=== PATIENT | female | born 1960 | race Caucasian/White ===

== ENCOUNTER → 2017-09-05 10:31 | Outpatient (CLI) | payer OTHER, MEDICAID, SELFPAY ==
--- NOTE | 2017-09-05 | DI.US.S_ITS ---
PROCEDURE: US ABDOMEN COMPLETE INDICATIONS: 57 year-old female with 3 cm masslike lesion in the posterior right hepatic lobe on recent CT scan, as well as diffuse fatty liver. TECHNIQUE: Real-time scanning was performed of the abdominal and retroperitoneal organs, with image documentation. COMPARISON: [facility], CT, ABDOMEN/PELVIS WITHOUT CONTRAS, 06/28/2017, 15:19. FINDINGS: Liver: Liver is normal in size and diffusely heterogeneous in echotexture. In the posterior right hepatic lobe, CT finding corresponds with 3.5 x 3.3 x 1.9 cm hypoechoic lesion. Color Doppler demonstrates no internal detectable vascular flow. Gallbladder: No gallstones or biliary sludge. Gallbladder wall thickness is normal. No pericholecystic fluid. Biliary ducts: Intrahepatic bile ducts are non-dilated. Extrahepatic bile duct caliber measures 4.4 mm. Normal is 6-7 mm or less in diameter, or 10 mm or less post-cholecystectomy. Pancreas: Visualized portions of the pancreas are sonographically normal. Pancreatic tail is obscured by bowel gas. Spleen: Spleen is normal in size and homogeneous in echotexture. Kidneys: Kidneys are normal in size and echotexture. Right kidney measures 11.0 cm long; left kidney measures 11.1 cm long. No hydronephrosis or nephrolithiasis. No solid masses. Aorta: Visualized aorta is normal in caliber at less than 3 cm. Iliacs: Proximal common iliac arteries are normal in caliber at less than 2.5 cm. IVC: Intrahepatic inferior vena cava is patent. Miscellaneous: No free abdominal fluid. IMPRESSION: 1. 3.5 cm posterior right hepatic lobe lesion corresponds with CT findings, and remains indeterminate in appearance. Finding may represent a true mass lesion, or perhaps atypical focal fatty sparing. Recommend further characterization attempt with pre-and postcontrast liver protocol abdominal MRI, utilizing Eovist contrast. 2. Background findings of diffuse fatty liver again noted. Dictated by: Misha Zendejas M.D. on 09/05/2017 at 12:14 Approved by: Misha Zendejas M.D. on 09/05/2017 at 12:19
[2017-09-05 12:05] LABS: Add Manual Diff / Slide Review NO; Basophils Percent Auto 0.6 % (0-2); Eosinophils Percent Auto 0.7 % (2-4); Hemoglobin 12.5 g/dL (12.0-16.0); Lymphocytes Percent Auto 32.5 % (25-40); Mean Corpuscular HGB Conc 33.9 % (30-36); Mean Corpuscular Hemoglobin 28.7 PG (26-34); Mean Corpuscular Volume 84.8 fL (80-100); Monocytes Percent Auto 3.9 % (3-14); Neutrophils Absolute Auto 5000 /uL (3000-5900); Neutrophils Percent Auto 62.3 % (50-75); Platelet Count 197 X10^3/uL (150-400); Red Blood Cell Count 4.36 X10^6/uL (4.0-5.2); Red Cell Distribution Width 14.3 % (11.6-14.8); White Blood Cell Count 8.1 X10^3/uL (4.5-11.0)
[2017-09-05 12:22] LABS: Alanine Aminotransferase 48 IU/L (9-52); Albumin 3.8 g/dL (3.5-5.0); Albumin Globulin Ratio 1.2 (1.0-2.8); Alkaline Phosphatase 61 U/L (38-126); Aspartate Aminotransferase 42 IU/L (14-36); BUN Creatinine Ratio 14.3 (6-22); Bilirubin Total 0.4 mg/dL (0.2-1.3); Blood Urea Nitrogen 10 mg/dL (7-17); Carbon Dioxide 29 mmol/L (22-32); Chloride 99 mmol/L (98-107); Estimated Glomerular Filt Rate > 60.0 mL/min (>60); Globulin 3.3 g/dL (1.7-4.1); Glucose 146 mg/dL (70-100); HEMOLYSIS < 15 (0-50); Sodium 139 mmol/L (137-145); Total Protein 7.1 g/dL (6.3-8.2)
[2017-09-07 16:09] LABS: Cancer Antigen 27.29 13 U/mL (< 38)
== END ==
PROVIDERS: Family Provider Physician Assistant; PCP Physician Assistant; Visit Provider Nurse Practitioner Gerontology
DX: C50.919 Malignant neoplasm of unspecified site of unspecified female breast (principal); R16.0 Hepatomegaly, not elsewhere classified; K76.0 Fatty (change of) liver, not elsewhere classified
CPT/HCPCS: 36415; 76700; 80053; 85025; 86300

== ENCOUNTER 2017-09-20 09:28 | Day surgery (SDC) | payer OTHER, MEDICAID, SELFPAY ==
--- NOTE | 2017-09-09 17:09 | ONC.PHONE ---
Onc patient phone note - Conversation with Person: Patient Discussion: Telephone conv w tristan re: poss reduced efficacy of tamoxifen with prozac. She informs me prior to prozac she tried other agents including wellbutrin and zolft without success. prozac has been effective for her. We discussed the recommendation is not necessarily to DC prozac with tamoxifen however with younger pts and higher risk cancers we need to be sure to have open dialogue. My recommendation to Tristan was to discuss with either her PCP or one of us in oncology clinic next visit. I refilled her tamoxifen and recommend in the meantime she cont prozac until she has f/u appt which she has soon. Tristan verbalized understanding.
[2017-09-20] VITALS (10 sets, daily range): BP systolic 86–118; BP diastolic 50–68; PULSE 54–80; RESP 10–18; TEMP 36–37.2; O2SAT 93–98; BMI 28.1
[2017-09-20] MEDS: SODIUM CHLORIDE 0.9% 1,000 ML 200 ML IV ×2 (10:10→12:00)
--- NOTE | 2017-09-20 10:36 | PM.HP.1 ---
History of Present Illness Date Patient Seen: 09/20/17 Time Patient Seen: 10:36 Chief complaint: EGD colonoscopy [id number] Patient History Medical History History of right breast cancer (Chronic) Surgical History Status post right breast lumpectomy (Resolved) History of tonsillectomy Status post knee surgery Status post laparoscopy Family & Social History Family History: Reviewed 09/20/17 by Etienne Dyson MD Social History: household members family Tobacco & Substance use: Quit smoking 2 years ago Meds Home Medications Medication Instructions Recorded Confirmed Type [MEDICAL MARIJUANA] #0 12/12/15 History alprazolam [Xanax] 0.5 mg PO BID PRN #60 tab 02/09/17 Rx metformin [Glucophage XR] 500 mg PO QDAY #30 tab 06/28/17 Rx ondansetron [Zofran ODT] 4 mg SUBLINGUAL Q6HP PRN #30 odt 06/28/17 Rx Glucose: Home Monitoring Kit kit #1 07/21/17 Rx Glucose: Test Strips str TID #100 07/21/17 Rx Lancet: Device box TID #1 07/21/17 Rx fluoxetine 20 mg capsule 20 mg PO TID #90 cap 08/03/17 Rx tamoxifen 20 mg PO DAILY #90 tab 09/09/17 Rx hydrocodone-acetaminophen [[place]] 1 tab PO Q4-6H PRN 09/19/17 09/20/17 History Allergies Allergy/AdvReac Type Severity Reaction Status Date / Time aloe vera [ALOE VERA] Allergy Severe HIVES Unverified 07/13/17 12:19 latex [LATEX] Allergy Severe HIVES AND Unverified 07/13/17 12:19 BURNING SENSATION irma [IRMA] Allergy Intermediate HIVES Unverified 07/13/17 12:19 Iodinated Contrast- Oral and Allergy Mild HUGE Unverified 07/13/17 12:19 IV Dye SWELLING [IODINATED CONTRAST MEDIA - AT SITE OF IV DYE] INJECTION, IV INFILTRATED sumatriptan [From IMITREX] AdvReac Severe VOMITING, Unverified 07/13/17 12:19 RAPID HEART RATE, JITTERING, NAUSEA, PANIC ATTACK prednisone [PREDNISONE] AdvReac Intermediate UIT Unverified 07/13/17 12:19 SYMPTOMS, FEVER, NAUSEA, HIVES, ELEVATED BLOOD SUGARS promethazine [From PHENERGAN] AdvReac Intermediate NAUSEA, Unverified 07/13/17 12:19 VOMITING AND JITTERY codeine [CODEINE] AdvReac Mild VOMITING Unverified 07/13/17 12:19 erythromycin base AdvReac Mild VOMITING Unverified 07/13/17 12:19 [ERYTHROMYCIN BASE] AND TURNED MY TEETH BLACK tetracycline [TETRACYCLINE] AdvReac Mild PROJECTILE Unverified 07/13/17 12:19 VOMITING CALANDULA Allergy Intermediate HIVES Uncoded 07/13/17 12:19 EPIDURAL STEROID AdvReac Intermediate WELTS, Uncoded 07/13/17 12:19 HIVES, FEVER AND NAUSEA Review of Systems Review of Systems All systems reviewed & are unremarkable except as noted in HPI and below Gastrointestinal Comments: Having intermittent bleeding per rectum. Postprandial fullness. Abnormal CT scan of the liver. Musculoskeletal Comments: Muscle cramps involving the legs and feet. Exam Vital Signs (past 8 hours): Vital Signs - 8 hr 09/20/17 09:53 Temperature 97.5 F L Pulse Rate 74 Respiratory Rate 16 Blood Pressure 118/63 Pulse Oximetry 95 Pulse Oximetry 95 Oxygen Delivery Method Room Air Narrative Exam Narrative: Operative no apparent distress. Lungs clear to auscultation no rales or rhonchi heart regular rate and rhythm no murmur or gallop abdomen is mildly protuberant soft nontender without mass. Alert and oriented x3. Assessment & Plan Plan: Assessment/Plan Narrative: Patient with epigastric pain discomfort and postprandial nausea and fullness and with right lower quadrant pain. She is 57 and has never had a colonoscopy. She has rectal bleeding. I have discussed the procedures and the rationale for both EGD and colonoscopy with the patient including risks of bleeding, perforation which would necessitate a major operation, failure to find remove all lesions and the potential to tattoo. They appeared to understand and wished to proceed.
--- NOTE | 2017-09-20 10:38 | SUR.OPER ---
to endo from opd via cart respirations unlabored iv patent positioned per self for procedure
--- NOTE | 2017-09-20 10:40 | P.HP_ITS ---
History of Present Illness Date Patient Seen: 09/20/17 Time Patient Seen: 10:36 Chief complaint: EGD colonoscopy [id number] Patient History Medical History History of right breast cancer (Chronic) Surgical History Status post right breast lumpectomy (Resolved) History of tonsillectomy Status post knee surgery Status post laparoscopy Family & Social History Family History: Reviewed 09/20/17 by Etienne Dyson MD Social History: household members family Tobacco & Substance use: Quit smoking 2 years ago Meds Home Medications Medication Instructions Recorded Confirmed Type [MEDICAL MARIJUANA] #0 12/12/15 History alprazolam [Xanax] 0.5 mg PO BID PRN #60 tab 02/09/17 Rx metformin [Glucophage XR] 500 mg PO QDAY #30 tab 06/28/17 Rx ondansetron [Zofran ODT] 4 mg SUBLINGUAL Q6HP PRN #30 odt 06/28/17 Rx Glucose: Home Monitoring Kit kit #1 07/21/17 Rx Glucose: Test Strips str TID #100 07/21/17 Rx Lancet: Device box TID #1 07/21/17 Rx fluoxetine 20 mg capsule 20 mg PO TID #90 cap 08/03/17 Rx tamoxifen 20 mg PO DAILY #90 tab 09/09/17 Rx hydrocodone-acetaminophen [Simon] 1 tab PO Q4-6H PRN 09/19/17 09/20/17 History Allergies Allergy/AdvReac Type Severity Reaction Status Date / Time aloe vera [ALOE VERA] Allergy Severe HIVES Unverified 07/13/17 12:19 latex [LATEX] Allergy Severe HIVES AND Unverified 07/13/17 12:19 BURNING SENSATION irma [IRMA] Allergy Intermediate HIVES Unverified 07/13/17 12:19 Iodinated Contrast- Oral and Allergy Mild HUGE Unverified 07/13/17 12:19 IV Dye SWELLING [IODINATED CONTRAST MEDIA - AT SITE OF IV DYE] INJECTION, IV INFILTRATED sumatriptan [From IMITREX] AdvReac Severe VOMITING, Unverified 07/13/17 12:19 RAPID HEART RATE, JITTERING, NAUSEA, PANIC ATTACK prednisone [PREDNISONE] AdvReac Intermediate UIT Unverified 07/13/17 12:19 SYMPTOMS, FEVER, NAUSEA, HIVES, ELEVATED BLOOD SUGARS promethazine [From PHENERGAN] AdvReac Intermediate NAUSEA, Unverified 07/13/17 12:19 VOMITING AND JITTERY codeine [CODEINE] AdvReac Mild VOMITING Unverified 07/13/17 12:19 erythromycin base AdvReac Mild VOMITING Unverified 07/13/17 12:19 [ERYTHROMYCIN BASE] AND TURNED MY TEETH BLACK tetracycline [TETRACYCLINE] AdvReac Mild PROJECTILE Unverified 07/13/17 12:19 VOMITING CALANDULA Allergy Intermediate HIVES Uncoded 07/13/17 12:19 EPIDURAL STEROID AdvReac Intermediate WELTS, Uncoded 07/13/17 12:19 HIVES, FEVER AND NAUSEA Review of Systems Review of Systems All systems reviewed & are unremarkable except as noted in HPI and below Gastrointestinal Comments: Having intermittent bleeding per rectum. Postprandial fullness. Abnormal CT scan of the liver. Musculoskeletal Comments: Muscle cramps involving the legs and feet. Exam Vital Signs (past 8 hours): Vital Signs - 8 hr 3 09/20/17 09:53 Temperature 97.5 F L Pulse Rate 74 Respiratory Rate 16 Blood Pressure 118/63 Pulse Oximetry 95 Pulse Oximetry 95 Oxygen Delivery Method Room Air Narrative Exam Narrative: Operative no apparent distress. Lungs clear to auscultation no rales or rhonchi heart regular rate and rhythm no murmur or gallop abdomen is mildly protuberant soft nontender without mass. Alert and oriented x3. Assessment & Plan Plan: Assessment/Plan Narrative: Patient with epigastric pain discomfort and postprandial nausea and fullness and with right lower quadrant pain. She is 57 and has never had a colonoscopy. She has rectal bleeding. I have discussed the procedures and the rationale for both EGD and colonoscopy with the patient including risks of bleeding, perforation which would necessitate a major operation, failure to find remove all lesions and the potential to tattoo. They appeared to understand and wished to proceed.
[2017-09-20] MEDS: ONDANSETRON 4 MG/2 ML INJ IV (10:41)
--- NOTE | 2017-09-20 10:43 | PM.PREOP ---
Pre-operative Note Interval Note Pre-op Check: History & Physical exam performed today H&P completed within 30 days and has changed as indicated here:: None ASA Class (for procedural sedation): I
[2017-09-20] MEDS: TETRACAINE/BENZOCAINE/BUTAMBEN (CETACAINE) BOTTLE 1 SPRAY TOP (11:25)
[2017-09-20] MEDS: fentaNYL 250 MCG/5 ML INJ 350 MCG IV (11:25)
[2017-09-20] MEDS: MIDAZOLAM 5 MG/5 ML VIAL 10 MG IV (11:25)
[2017-09-20] MEDS: LIDOCAINE 4% SOLN 50 ML 20 ML TOP (11:25)
--- NOTE | 2017-09-20 11:25 | PM.OP.ENDO ---
Operative Date/Time/Diagnoses - Date of procedure: 09/20/17 Time of procedure: 11:25 Pre-op diagnosis: Epigastric discomfort, postprandial nausea, right lower quadrant pain, age greater than 50. Never had a colonoscopy. Post-op diagnosis: same (Cause of symptoms not found. Patient did have fairly extensive diverticulosis of her sigmoid colon) Procedure & Clinicians Study performed: EGD and colonoscopy Same procedure as scheduled: Yes Indications: Epigastric symptoms postprandial nausea right lower quadrant pain and screening for colon cancer Surgeon: Etienne Dyson Procedure Notes SCOAP/Timeout: Perform Procedure in detail: The patient is placed in left lateral decubitus position after having topical anesthetic applied to oropharynx. She was sedated using fentanyl and Versed. A bite block was inserted. Scope was advanced through it into the esophagus. The esophagus was normal. GE junction 40 cm. Stomach insufflated well. Was also all but otherwise unremarkable. The pyloric channel was patent. The duodenum was normal to the 4th part. The scope was brought into the stomach and retroflexed. The proximal stomach was unremarkable. No evidence of hiatal hernia. The scope was straightened and brought back out slowly through the GE junction and the esophagus. No other findings were apparent and scope was removed. The patient was repositioned given additional sedation. The patient was placed in the left lateral decubitus position and underwent IV sedation directed by the surgeon consisting of fentanyl and Versed. Digital exam was unremarkable. The scope was inserted and advanced through the rectum into the sigmoid, descending, transverse, and ascending colon. The patient had fairly deep and large sigmoid diverticulosis.. The cecum was reached identified by the ileocecal valve and the appendiceal opening. The ileocecal valve was successfully cannulated. The terminal ileum was normal in appearance. The scope was gradually brought out. No Polyps were found. The sigmoid was somewhat edematous but not inflamed. The scope ultimately was retroflexed in the rectum. The appearance was normal. No significant hemorrhoids seen.. The scope was removed and the patient tolerated the procedure well Scope withdrawal time: 11 min Sedation minutes: 35 Findings: diverticulosis (Sigmoid with mild edema but no inflammation) and other findings (Normal upper scope) Specimen(s): none sent Recommendations: Colonscopy in 10 years Follow up: as needed Disposition: PACU
--- NOTE | 2017-09-20 11:26 | SUR.OPER ---
tolerared procedure well
--- NOTE | 2017-09-20 11:34 | SUR.PHASEI ---
patient tolerated pudding and water post procedure.
--- NOTE | 2017-09-20 12:07 | SUR.PHASEII ---
assumed care from mirta. bp still low, iv fluid infusing, pt denies symptoms.eating crackers and drinking juice. call belly with in reach
--- NOTE | 2017-09-20 13:25 | SUR.PHASEII ---
bp up after fluid, vss, pt feels good, ready to go home, dressed and left when ready and in stable condition.
== END 2017-09-20 12:40 | disposition home or self-care (01) ==
PROVIDERS: PCP Physician Assistant; Visit Provider Specialist
PROC: 0DJ08ZZ Inspection of Upper Intestinal Tract, Via Natural or Artificial Opening Endoscopic (ICD-10-PCS; CPT 43235; principal; 2017-09-20 09:45)
PROC: 0DJD8ZZ Inspection of Lower Intestinal Tract, Via Natural or Artificial Opening Endoscopic (ICD-10-PCS; CPT 45378; 2017-09-20 09:45)
DX: R10.31 Right lower quadrant pain (principal); K62.5 Hemorrhage of anus and rectum; R10.13 Epigastric pain; K57.30 Diverticulosis of large intestine without perforation or abscess without bleeding; Z87.891 Personal history of nicotine dependence
CPT/HCPCS: 43235; 45378; 99152; 99153; J2250; J2405; J3010

== ENCOUNTER → 2017-10-03 14:58 | Outpatient (CLI) | payer OTHER, MEDICAID, SELFPAY ==
[2017-10-03 15:19] LABS: Add Manual Diff / Slide Review NO; Basophils Percent Auto 1.5 % (0-2); Hematocrit 41.6 % (36-46); Hemoglobin 13.8 g/dL (12.0-16.0); Lymphocytes Percent Auto 31.8 % (25-40); Mean Corpuscular HGB Conc 33.3 % (30-36); Monocytes Percent Auto 5.7 % (3-14); Neutrophils Absolute Auto 5100 /uL (3000-5900); Platelet Count 236 X10^3/uL (150-400); Red Blood Cell Count 4.78 X10^6/uL (4.0-5.2); Red Cell Distribution Width 14.9 % (11.6-14.8); White Blood Cell Count 8.4 X10^3/uL (4.5-11.0)
[2017-10-03 15:30] LABS: Alanine Aminotransferase 53 IU/L (9-52); Albumin 4.3 g/dL (3.5-5.0); Albumin Globulin Ratio 1.2 (1.0-2.8); Alkaline Phosphatase 82 U/L (38-126); Aspartate Aminotransferase 49 IU/L (14-36); BUN Creatinine Ratio 17.1 (6-22); Bilirubin Total 0.5 mg/dL (0.2-1.3); Blood Urea Nitrogen 12 mg/dL (7-17); Calcium 9.7 mg/dL (8.4-10.2); Carbon Dioxide 24 mmol/L (22-32); Chloride 103 mmol/L (98-107); Estimated Glomerular Filt Rate > 60.0 mL/min (>60); Globulin 3.6 g/dL (1.7-4.1); Glucose 121 mg/dL (70-100); HEMOLYSIS < 15 (0-50); Sodium 140 mmol/L (137-145); Total Protein 7.9 g/dL (6.3-8.2)
[2017-10-06 15:32] LABS: Cancer Antigen 27.29 14 U/mL (< 38)
== END ==
PROVIDERS: PCP Physician Assistant; Visit Provider Nurse Practitioner Gerontology
DX: C50.919 Malignant neoplasm of unspecified site of unspecified female breast (principal)
CPT/HCPCS: 36415; 80053; 85025; 86300

== ENCOUNTER → 2017-10-04 17:39 | Outpatient (CLI) | payer OTHER, MEDICAID, SELFPAY ==
--- NOTE | 2017-10-04 | DI.MRI.S_ITS ---
PROCEDURE: MR ABDOMEN WO/W CON INDICATIONS: LIVER MASS TECHNIQUE: Coronal HASTE, axial 2D FLASH in- and [id number]; axial breath-hold T2 FSE. Dynamic axial VIBE during the administration of contrast; post-contrast coronal VIBE or 2D FLASH with fat saturation from the hepatic dome to the iliac crests. Optional diffusion weighted imaging and ADC may be performed. COMPARISON: [facility], CT, ABDOMEN/PELVIS WITHOUT CONTRAS, 06/28/2017, 15:19. [facility], US, US ABDOMEN COMPLETE, 09/05/2017, 10:48. FINDINGS: Image quality: Excellent. Lung bases: No basal pleural effusions. Heart size is normal. Solid organs: Liver is normal in size and again demonstrates fatty infiltration better seen by CT scanning. Within the posterior superior subcapsular right hepatic lobe there is a ovoid structure corresponding to the abnormality seen by CT and ultrasound scanning recently, which shows discontinuous peripheral nodular enhancement on postcontrast imaging and centripetal enhancement increasing over time. This is accompanied by elevated T2 signal and also restriction of diffusion signal, with morphologic and imaging characteristics of hemangioma. The contrast utilized, Eovist, does not accumulate within the structure on delayed imaging. A similar smaller structure at the same axial level more centrally within the right hepatic lobe (series 13 image 11) appears to represent a second hemangioma, unilocular. Gallbladder appears contracted. Biliary system is non dilated. Pancreas is normal in morphology. Spleen is normal in size and enhancement. No adrenal nodules. Both kidneys demonstrate normal size and enhancement, without hydronephrosis. Nodes and vessels: No retroperitoneal or mesenteric adenopathy by size criteria. Aorta and inferior vena cava are normal in size. Bowel and peritoneum: Unenhanced bowel loops are normal in caliber. No free fluid. Bones and soft tissues: No ventral hernias. Bone marrow is normal in overall signal. IMPRESSION: 2 separate hemangiomas appear present within the right hepatic lobe the first previously identified by CT and ultrasound scanning and measuring approximately 3.5 cm in maximal dimension showing no interval enlargement over time. A second, measuring only approximately 9 mm in maximal dimension, is located at the same axial level but central within the right hepatic lobe and consistent with unilocular hemangioma. Recommend followup ultrasound in 6 months to confirm stability of appearance over time. Dictated by: Henok Delong M.D. on 10/06/2017 at 12:11 Approved by: Henok Delong M.D. on 10/06/2017 at 12:26
== END ==
PROVIDERS: PCP Physician Assistant; Visit Provider Nurse Practitioner Gerontology
DX: R16.0 Hepatomegaly, not elsewhere classified (principal); D18.09 Hemangioma of other sites
CPT/HCPCS: 74183; A9579

== ENCOUNTER → 2017-10-22 19:07 | Outpatient (CLI) | payer OTHER, MEDICAID, SELFPAY | PROVIDERS: PCP Physician Assistant; Visit Provider Physician Assistant | DX: R68.89 Other general symptoms and signs (principal) | CPT/HCPCS: 87400 ==

== ENCOUNTER → 2017-11-07 08:04 | Outpatient (CLI) | payer OTHER, MEDICAID, SELFPAY ==
[2017-11-07 08:43] LABS: Alanine Aminotransferase 41 IU/L (9-52); Albumin 3.5 g/dL (3.5-5.0); Albumin Globulin Ratio 1.1 (1.0-2.8); Alkaline Phosphatase 88 U/L (38-126); Aspartate Aminotransferase 26 IU/L (14-36); Bilirubin Total 0.3 mg/dL (0.2-1.3); Blood Urea Nitrogen 9 mg/dL (7-17); Calcium 8.6 mg/dL (8.4-10.2); Carbon Dioxide 32 mmol/L (22-32); Chloride 100 mmol/L (98-107); Cholesterol 152 mg/dL (140-199); Estimated Glomerular Filt Rate > 60.0 mL/min (>60); Globulin 3.1 g/dL (1.7-4.1); Glucose 186 mg/dL (70-100); HDL Cholesterol 46 mg/dL (40-60); HEMOLYSIS < 15 (0-50); LDL Cholesterol Calculated 87 mg/dL (<100); Potassium 4.1 mmol/L (3.4-5.1); Sodium 138 mmol/L (137-145); Total Protein 6.6 g/dL (6.3-8.2); Triglycerides 95 mg/dL (35-150)
[2017-11-07 09:00] LABS: Hemoglobin A1C% w Est Avg Glu 8.7 % (4.0-6.0)
== END ==
PROVIDERS: Physician Assistant; PCP Nurse Practitioner Gerontology; Visit Provider Nurse Practitioner Gerontology
DX: R73.01 Impaired fasting glucose (principal)
CPT/HCPCS: 36415; 80053; 80061; 83036

== ENCOUNTER 2018-01-05 14:30 | Oncology outpatient (ONC) | payer OTHER, MEDICAID, SELFPAY ==
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
[2017-10-07 15:59] VITALS: BP 132/91; PULSE 78; RESP 15; TEMP 37.2; O2SAT 98
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
[2018-01-05 11:41] LABS: Add Manual Diff / Slide Review NO; Eosinophils Percent Auto 2.3 % (2-4); Hematocrit 36.6 % (36-46); Hemoglobin 12.2 g/dL (12.0-16.0); Lymphocytes Percent Auto 34.8 % (25-40); Mean Corpuscular HGB Conc 33.4 % (30-36); Mean Corpuscular Hemoglobin 29.1 PG (26-34); Mean Corpuscular Volume 87.1 fL (80-100); Neutrophils Absolute Auto 4800 /uL (3000-5900); Neutrophils Percent Auto 56.9 % (50-75); Platelet Count 227 X10^3/uL (150-400); Red Cell Distribution Width 15.4 % (11.6-14.8); White Blood Cell Count 8.4 X10^3/uL (4.5-11.0)
[2018-01-05 12:04] VITALS: BP 142/79; PULSE 68; RESP 18; TEMP 36.6; O2SAT 98
[2018-01-05 12:04] LABS: Alanine Aminotransferase 40 IU/L (9-52); Albumin 3.7 g/dL (3.5-5.0); Albumin Globulin Ratio 1.2 (1.0-2.8); Alkaline Phosphatase 100 U/L (38-126); Aspartate Aminotransferase 32 IU/L (14-36); BUN Creatinine Ratio 18.6 (6-22); Bilirubin Total 0.4 mg/dL (0.2-1.3); Blood Urea Nitrogen 13 mg/dL (7-17); Carbon Dioxide 31 mmol/L (22-32); Chloride 102 mmol/L (98-107); Estimated Glomerular Filt Rate > 60.0 mL/min (>60); Globulin 3.2 g/dL (1.7-4.1); Glucose 185 mg/dL (70-100); HEMOLYSIS < 15 (0-50); Potassium 4.1 mmol/L (3.4-5.1); Sodium 140 mmol/L (137-145); Total Protein 6.9 g/dL (6.3-8.2)
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
--- NOTE | 2018-01-30 10:29 | PC.NURSE ---
Pt called a little frantic. She had to travel to [place] for a family emergency and left behind a large portion of her medications. Currently she needs probably a 30 day supply of her zofran, prozac, and tamoxifen. You last saw her on 01/05. Scripts would be good so I could call in or fax them.
--- NOTE | 2018-03-21 12:42 | PC.NURSE ---
Per Laura, pt is on Prozac which decreases the efficacy of Tamoxifen. Laura would like pt to come in for an appt to discuss this further. A message was left on pt voicemail, communicating above and requesting pt to call schedulers to make an appt.
--- NOTE | 2018-04-11 07:29 | P.PNONC_ITS ---
Onc patient phone note - Conversation with Person: Patient Discussion: Patient has requested a refill of her fluoxetine and tamoxifen. She is out of the state caring for her sick parents in [place]. She is not available to come in for an appointment within the next 30 days. I briefly discussed with the patient fluoxetine in conjunction with tamoxifen has been known to reduce the efficacy of tamoxifen and I would recommend discontinuing and considering changing to a no other antidepressant. Patient verbalizes understanding says she is happy to have this discussion at her next visit. She plans to return to the [facility] in May she will schedule a visit to discuss further.
--- NOTE | 2018-04-13 14:57 | PC.NURSE ---
left several msg with pt and pts family members on her contact list. Pt called requesting Rx for her tamoxifen and prosac be sent to [facility] in [facility]. This has been completed but unable to advise pt. Only hope is she calls back at some point.
== END 2018-01-06 12:00 ==
PROVIDERS: PCP Physician Assistant; Visit Provider Nurse Practitioner Gerontology
DX: Z08 Encounter for follow-up examination after completed treatment for malignant neoplasm (principal); K76.9 Liver disease, unspecified; Z85.3 Personal history of malignant neoplasm of breast
CPT/HCPCS: 36415; 80053; 85025; 99214

== ENCOUNTER → 2018-07-10 08:52 | Outpatient (CLI) | payer OTHER, MEDICAID, SELFPAY ==
--- NOTE | 2018-07-10 08:55 | DI.US.S_ITS ---
PROCEDURE: US ABDOMEN LIMITED INDICATIONS: FATTY CHANGE OF LIVER TECHNIQUE: Real-time focused scanning was performed of the abdomen, with image documentation. COMPARISON: [facility], MR, MR ABDOMEN WO/W CON, 10/04/2017, 18:10. [facility], US, US ABDOMEN COMPLETE, 09/05/2017, 10:48. [facility], CT, ABDOMEN/PELVIS WITHOUT CONTRAS, 06/28/2017, 15:19. FINDINGS: The liver is moderately fatty infiltrated and measures up to 14.8 cm craniocaudad. Within the right hepatic lobe posteriorly an area of relative sparing of otherwise diffuse fatty infiltration is again noted, and has been previously evaluated by CT and MR scanning, found to represent a hemangioma. This structure measures 3.4 x 2.0 x 2.6 cm and previously was 3.5 x 1.9 x 3.3 cm 09/05/17. No significant change in overall volume. IMPRESSION: Fatty infiltration within the liver, focal hemangioma present at the right posterior hepatic lobe margin previously well visualized also by CT and MR scanning. Dictated by: Henok Delong M.D. on 07/10/2018 at 15:46 Approved by: Henok Delong M.D. on 07/10/2018 at 15:50
[2018-07-10 09:09] LABS: Add Manual Diff / Slide Review NO; Basophils Absolute Auto 100 /uL (0-100); Eosinophils Absolute Auto 100 /uL (0-450); Eosinophils Percent Auto 1.6 % (2-4); Hematocrit 43.7 % (36-46); Hemoglobin 14.7 g/dL (12.0-16.0); Lymphocytes Absolute Auto 2800 /uL (1100-4500); Lymphocytes Percent Auto 38.9 % (25-40); Mean Corpuscular HGB Conc 33.6 % (30-36); Mean Corpuscular Hemoglobin 29.5 PG (26-34); Mean Corpuscular Volume 87.7 fL (80-100); Monocytes Absolute Auto 300 /uL (0-900); Monocytes Percent Auto 3.6 % (3-14); Neutrophils Absolute Auto 4000 /uL (1500-7000); Neutrophils Percent Auto 54.9 % (50-75); Platelet Count 182 X10^3/uL (150-400); Red Blood Cell Count 4.99 X10^6/uL (4.0-5.2); Red Cell Distribution Width 13.9 % (11.6-14.8); White Blood Cell Count 7.2 X10^3/uL (4.5-11.0)
[2018-07-10 09:20] LABS: Alanine Aminotransferase 54 IU/L (9-52); Albumin 4.1 g/dL (3.5-5.0); Albumin Globulin Ratio 1.2 (1.0-2.8); Alkaline Phosphatase 125 U/L (38-126); Aspartate Aminotransferase 47 IU/L (14-36); BUN Creatinine Ratio 15.7 (6-22); Bilirubin Total 0.5 mg/dL (0.2-1.3); Blood Urea Nitrogen 11 mg/dL (7-17); Calcium 9.2 mg/dL (8.4-10.2); Carbon Dioxide 30 mmol/L (22-32); Chloride 100 mmol/L (98-107); Estimated Glomerular Filt Rate > 60.0 mL/min (>60); Globulin 3.3 g/dL (1.7-4.1); Glucose 289 mg/dL (70-100); HEMOLYSIS < 15 (0-50); Potassium 4.2 mmol/L (3.4-5.1); Sodium 137 mmol/L (137-145); Total Protein 7.4 g/dL (6.3-8.2)
[2018-07-10 11:31] LABS: Creatinine Urine Random 112.5 mg/dL
[2018-07-10 11:37] LABS: Microalbumi Creatinin Ratio Ur 5.3 ug/mg CR (<30); Microalbumin Urine Random < 0.6 mg/dL (0-1.6)
[2018-07-13 16:40] LABS: Cancer Antigen 27.29 16 U/mL (< 38)
== END ==
PROVIDERS: Physician Assistant; PCP Nurse Practitioner Gerontology; Visit Provider Nurse Practitioner Gerontology
DX: C50.919 Malignant neoplasm of unspecified site of unspecified female breast (principal); K76.0 Fatty (change of) liver, not elsewhere classified; R16.0 Hepatomegaly, not elsewhere classified; R73.9 Hyperglycemia, unspecified; D18.09 Hemangioma of other sites
CPT/HCPCS: 36415; 76705; 80053; 82043; 82570; 85025; 86300